=== PATIENT | male | born 1985 ===

== ENCOUNTER → 2025-05-20 | Outpatient (REF) | payer BC ==
[2025-05-27 17:17] LABS: IMMUNOGLOBULIN A CELIAC 275 mg/dL (47-310); t-TRANSGLUTAMINASE(tTG) IgA < 1.0 U/mL (<15.0); t-TRANSGLUTAMINASE(tTG) IgG < 1.0 U/mL (<15.0)
== END ==
LOC: M LAB REF 10:11
PROVIDERS: ATTEND Internal Medicine Gastroenterology
DX: Z87.19 Personal history of other diseases of the digestive system (principal)